=== PATIENT | male | born 1990 ===

== ENCOUNTER 2019-02-20 23:54 | Inpatient (IN) | payer SELFPAY ==
[~2019-02-20] VITALS: Ht 177.8 cm; Wt 73.5 kg
[~2019-02-20 23:54] MED LIST: AMPDEX10; CYCL10 PO; HYDACE5 PO; IBUP800 PO; NAPR500 PO; ONDA4ODT MM; RXONDA4ODT MM
[2019-02-21 00:30] LABS: BASOPHILS ABSOLUTE AUTO 0.12 K/mm3 (0.00-0.23); BASOPHILS PERCENT AUTO 1 % (0-2); EOSINOPHILS ABSOLUTE AUTO 0.24 K/mm3 (0.00-0.68); EOSINOPHILS PERCENT AUTO 2 % (0-6); Hematocrit 44.7 % (37.0-53.0); Hemoglobin 14.5 g/dL (13.5-17.5); IMMATURE GRAN ABSOLUTE AUTO 0.03 K/mm3 (0.00-0.10); IMMATURE GRAN PERCENT AUTO 0 % (0-1); LYMPHOCYTES PERCENT AUTO 44 % (21-46); MONOCYTES ABSOLUTE AUTO 0.82 K/mm3 (0.16-1.47); MONOCYTES PERCENT AUTO 7 % (4-13); Mean Corpuscular HGB 30.9 pg (26.0-34.0); Mean Corpuscular HGB Conc 32.4 g/dL (31.5-36.5); Mean Corpuscular Volume 95 fL (80-100); NEUTROPHILS ABSOLUTE AUTO 5.11 K/mm3 (1.96-9.15); NEUTROPHILS PERCENT AUTO 46 % (41-73); RDW Coefficient Variation 11.6 % (11.7-14.2); RDW Standard Deviation 40.6 fL (35.1-46.3); White Blood Cell Count 11.22 K/mm3 (4.00-11.30)
[2019-02-21 00:40] LABS: Alanine Aminotransfer (ALT/SGP 25 U/L (12-78); Albumin, Blood 4.3 g/dL (3.4-5.0); Albumin/Globulin Ratio 1.3 (0.8-1.8); Alk Phos 49 U/L (50-136); Anion Gap 13 mmol/L (6-16); Aspartate Aminotrans (AST/SGOT 20 U/L (12-37); Bilirubin, Total 0.2 mg/dL (0.1-1.0); Blood Urea Nitrogen 23 mg/dL (8-24); Bun/Creatinine Ratio 18.4 (12.0-20.0); CO2, Blood 20 mmol/L (21-32); Calcium, Blood 8.3 mg/dL (8.5-10.1); Chloride, Blood 108 mmol/L (98-108); Creatinine, Blood 1.25 mg/dL (0.60-1.20); Ethanol (Alcohol), Blood, Med 297 mg/dL; Globulin, Blood 3.4 g/dL (2.2-4.0); Glomerular Filtration Rate >60 (60-); Glucose, Blood 114 mg/dL (70-99); Potassium, Blood 3.3 mmol/L (3.5-5.5); Sodium, Blood 141 mmol/L (136-145); Total Protein, Blood 7.7 g/dL (6.4-8.2)
[2019-02-21 00:41] LABS: Mean Platelet Volume 10.7 fL (9.1-12.4); Platelet Count 241 K/mm3 (150-400)
[2019-02-21 00:51] LABS: Source, Urine Clean Catch
[2019-02-21 00:54] LABS: Bilirubin, Urine Neg (Neg); Blood, Urine Neg (Neg); Glucose Qualitative, Urine Neg (Neg); Ketones, Urine Neg (Neg); Leukocyte Esterase, Urine Neg (Neg); Nitrite, Urine Neg (Neg); Protein, Urine Neg (Neg); Urobilinogen, Urine NORM (Normal)
[2019-02-21 00:55] LABS: Appearance, Urine Clear (Clear); Color, Urine Yellow (P-Yellow)
[2019-02-21 01:05] LABS: U Amphetamine Screen Not Detected; U Barbituate Screen Not Detected; U Benzodiazapine Screen Not Detected; U Buprenorphine Screen Not Detected; U Cannabinoids Screen DETECTED; U Cocaine Screen Not Detected; U Methadone Screen Not Detected; U Methamphetamine Screen Not Detected; U Opiates Screen Not Detected; U Oxycodone Screen Not Detected; U Phencyclidine Screen Not Detected; U Propoxyphene Screen Not Detected
[2019-02-21 01:58] LABS: Thyroid Stimulating Hormone 0.461 uIU/mL (0.360-4.800)
[2019-02-21 02:44] LABS: PCO2 Arterial 45.5 mmHg (35-45); PO2 Arterial 143 mmHg (80-100); pH Blood Arterial 7.32 (7.35-7.45)
--- NOTE | 2019-02-21 04:01 | NUR ---
ADMIT NOTE: PT ARRIVED TO ICU RM 13 FROM ER AT APPRX 0220. PT INTUBATED, SEDATED ON VERSED AND PROPOFOL. VSS. PT WAS RESTLESS AND CONTINUED TO PULL AT RESTRAINTS SITTING HIMSELF UP. VERSED AND PROPOFOL gtts TITRATED TO AFFECT AND ARE CURRENTLY: VERSED 5mg/hr, PROPOFOL 30 mcg/kg/min. VENT SETTINGS CURRENTLY: A/C 16, Vt 450, PEEP OF 5.0, FiO2 30%. PT'S MOTHER JEAN CLAUDE TO ROOM AFTER PT WAS SETTLED. JEAN CLAUDE VERBALIZED GREAT CONCERNS RE: PT AND SOUND DESPERATELY TO GET HELP. JEAN CLAUDE STATED THAT SHE BELIEVES PT IS ON THE WRONG MEDICATION AND VERBALIZED HOPE THAT PT WILL BE PLACED ON THE PROPER MEDICATION FOR BIPOLAR. JEAN CLAUDE STATED THAT SHE HAS TRIED SEVERAL TIMES TO GET THE PT RE-EVALUATED FROM HIS CURRENT PSYCHOLOGIST BUT FEELS IS NOT BEING LISTENED TO. JEAN CLAUDE STATED THAT PT PLACED DEMANDS ON HIS MOM AT HOME AND WHEN THE DEMAND ISN'T MET, HE WILL GRAB HIS MOM BY THE THROAT AND YELL. JEAN CLAUDE STATED THAT SHE IS AFRAID THAT THEY (THE SYSTEM) WON'T DO ANYTHING TO HELP UNTIL AFTER THE PT HAS HURT HIMSELF, HER, OR SOMEONE ELSE. JEAN CLAUDE REASURED THAT THE PT HAS BEEN ORDERED THE RESOURCES NEEDED TO ASSIST PT IN FURTHER PSYCHIATRIC CARE. JEAN CLAUDE LEFT THE DEPT TO GET REST BEFORE WORK AND STATED WILL TRY TO BE BACK AROUND 0900.
--- NOTE | 2019-02-21 08:06 | NUR ---
DR. FOSS AT [facility] [place] FOR ASSESSMENT. RECEIVED VERBAL ORDER OR WEST CATHETER AND KCL REPLACEMENT.
[2019-02-21 08:11] LABS: BASOPHILS ABSOLUTE AUTO 0.04 K/mm3 (0.00-0.23); BASOPHILS PERCENT AUTO 0 % (0-2); EOSINOPHILS ABSOLUTE AUTO 0.04 K/mm3 (0.00-0.68); EOSINOPHILS PERCENT AUTO 0 % (0-6); Hematocrit 39.3 % (37.0-53.0); Hemoglobin 12.9 g/dL (13.5-17.5); IMMATURE GRAN ABSOLUTE AUTO 0.03 K/mm3 (0.00-0.10); IMMATURE GRAN PERCENT AUTO 0 % (0-1); LYMPHOCYTES ABSOLUTE AUTO 2.92 K/mm3 (0.84-5.20); LYMPHOCYTES PERCENT AUTO 26 % (21-46); MONOCYTES ABSOLUTE AUTO 0.84 K/mm3 (0.16-1.47); MONOCYTES PERCENT AUTO 8 % (4-13); Mean Corpuscular HGB 30.6 pg (26.0-34.0); Mean Corpuscular HGB Conc 32.8 g/dL (31.5-36.5); Mean Corpuscular Volume 93 fL (80-100); Mean Platelet Volume 9.9 fL (9.1-12.4); NEUTROPHILS ABSOLUTE AUTO 7.32 K/mm3 (1.96-9.15); NEUTROPHILS PERCENT AUTO 65 % (41-73); Platelet Count 242 K/mm3 (150-400); RDW Coefficient Variation 11.9 % (11.7-14.2); RDW Standard Deviation 40.6 fL (35.1-46.3); Red Blood Cell Count 4.22 M/mm3 (4.30-5.90); White Blood Cell Count 11.19 K/mm3 (4.00-11.30)
[2019-02-21 08:26] LABS: Anion Gap 4 mmol/L (6-16); Blood Urea Nitrogen 17 mg/dL (8-24); Bun/Creatinine Ratio 15.9 (12.0-20.0); CO2, Blood 25 mmol/L (21-32); Calcium, Blood 7.6 mg/dL (8.5-10.1); Chloride, Blood 115 mmol/L (98-108); Creatinine, Blood 1.07 mg/dL (0.60-1.20); Glomerular Filtration Rate >60 (60-); Glucose, Blood 102 mg/dL (70-99); Magnesium, Blood 2.4 mg/dL (1.6-2.4); Potassium, Blood 4.3 mmol/L (3.5-5.5); Sodium, Blood 144 mmol/L (136-145)
--- NOTE | 2019-02-21 08:33 | NUR ---
PATIENT'S MOTHER JEAN CLAUDE AT BEDSIDE FOR VISIT. OFFERED REFRESHMENT, DECLINED. ASKED THAT SHE CALL STAFF FOR ANY NEDS.
--- NOTE | 2019-02-21 09:40 | NUR ---
CONNECTED TO LI WALL SUCTION TO CHECK FOR VOLUME. NO MEASUREABLE OUTPUT NOTED, SCANT AMT PALE BROWN DRAINAGE. USED MANUAL SUCTION, SAME RESULT.
--- NOTE | 2019-02-21 12:37 | NUR ---
PATIET SEDATED, INTUBATED. TURNED HEAD FROM SIDE TO SIDE DURING ORAL CARE AND SUCTIONING, MOVED L HAND NON-PURPOSEFULLY. REMAINS IN SOFT RESTRAINTS X 4. TOLERATING VENTILATOR, NO S/S OF RESP DISTRESS; C/16/450/30%./5.0 PEEP. NO OBSERVABLE SIGNS OF PAIN.
--- NOTE | 2019-02-21 12:45 | NUR ---
UNABLE TO PERFORM SUICIDE RISK ASSESSMENT PT IS INTUBATED AND SEDATED, UNABLE TO ANSWER QUESTIONS AT THIS TIME.
--- NOTE | 2019-02-21 18:36 | NUR ---
SHIFT SUMMARY: PT REMAINS SEDATED AND INTUBATED. MOVES EXTREMITIES INTERMITTENTLY AGAINST RESTRAINTS. DOES NOT FOLLOW COMMANDS. IN SR, NO EDEMA, BP STABLE. VENT SETTINGS: C/16/450/30% FIO2/5.0 PEEP. TOLERATING VENT WELL. LUNGS CLEAR THROUGHOUT. OGT CLAMPED. WEST DRAINING ADEQUATE URINE. SOFT WRIST RESTRAINTS X 4. MOM VISITED TWICE DURING THE DAY. NO OBSERVABLE S/S OF PAIN. PROPOFOL @ 30 MCG/KG/MIN, VERSED @ 5 MG/HR, AND NS @ 100/HR. PLAN IS FOR POSSIBLE EXTUBATION TOMORROW.
--- NOTE | 2019-02-21 21:51 | NUR ---
DR. CLIFFORD NOTIFIED: PT C/ INCREASED AGITATION SINCE START OF SHIFT DESPITE INCREASED TITRATION OF PROPOFOL AND VERSED. PT ALSO C/ INCREASED LUNG SOUNDS, INCREASED ORAL SECRETIONS, AND INCREASED NEED FOR SUCTIONING, SUCTIOINING LIGHT CLIFFORD SPUTUM. NEW ORDERS: STAT C-XRAY, SPUTUM CX, GIVE FENTANYL 50-100mcg Q1HR FOR SEDATION; MAY TITRATE VERSED gtt TO 10 mg/hr. AT TIME OF CALL, STAFF X4 TRYING TO HOLD PT HE WAS RISING, PULLING ON RESTRAINTS, COUGHING AND GAGGING AGAINST VENT. JOANNA RT REMAINED AT BEDSIDE. AT THAT TIME, PROPOFOL TITRATED TO 50mcg/kg/hr, VERSED TITRATED TO 7mg/hr. PT GIVEN 50mcg FENTANYL AND HAS BEEN MORE CALM SINCE. VSS. WILL CONTINUE TO MONITOR.
--- NOTE | 2019-02-21 23:33 | NUR ---
DR. CLIFFORD NOTIFIED: RE: PT C/ BRADYCARDIA INTO THE 40'S. UPDATED RE: PROPOFOL AND VERSED gtt's CONTINUED AT RATES GIVEN AT FIRST PHONE CALL (PROPOFOL AT 50mcg, AND VERSED AT 7mg). RT AND CHARGE CALLED TO BEDSIDE. PROPFOL AND VERSED PAUSED WHILE CALL MADE TO DOCTOR. NEW ORDERS GIVEN AND REPEATED X2: HOLD gtts UNTIL HR STABLE. ADD PRECEDEX TO DRIPS AND TITRATE PROPOFOL DOWN. VERIFIED CONTINUING VERSED gtt AND VERSED TO BE CONTIUED. FENTANYL 50-100mcg Q1 HR PRN CONTINUED.
--- NOTE | 2019-02-22 01:15 | NUR ---
UPDATE: THIS RN REMAINED AT BEDSIDE SINCE PHONE CALL AND ORDERS TO DR. CLIFFORD TITRATING PROPOFOL AND VERSED gtt TO AFFECT. NOTED WAS PT'S HR IN TO THE 40'S AND LOW 42 WHEN ANY RATE OF VERSED GIVEN. AT LOW DOSE OF PROPOFOL PT AWAKENED AND VERY AGITATED PULLING AT RESTRAINTS, FOLDING SELF FORWARD, AND ACTUALLY AT ONE POINT WAS ABLE TO GRAB ET TUBE. VERSED WAS PAUSED, FENTANYL 50 mcg GIVEN. WHEN HR REMAINED OVER 60, PRECEDEX WAS STARTED AT START RATE OF 0.2 mcg/kg/hr. AT THAT TIME PROPOFOL REDUCED FROM 50 mcg. TO 35 mcg. CURRENTLY PT REMAINS SEDATED AND CALM. BED ALARM ON TO MOST SENSITIVE SETTING. PT IN FULL VIEW OF NURSES' STATION. WILL CONTINUE TO MONITOR.
--- NOTE | 2019-02-22 03:32 | NUR ---
UPDATE: AT APPRX 0300, PT BED ALARM SOUNDED, STAFF IMMEDIATELY TO BEDSIDE. PT TRYING TO SIT UP AND LEAN FORWARD REACHING FOR TUBE. EVEN IN FOUR POINT SOFT RESRAINTS, PT ABLE TO PULL HIMSELF FORWARD ENOUGH TO GET ET TUBE CLOSE ENOUGHT TO HIS HAND. PRECEDEX TITRATED TO 0.4 mcg/kg/hr, PROPOFOL TO 40 mcg/kg/hr. FENTANYL 50 mcg GIVEN A SEDATION ADJUNCT. PT CURRENTLY CALM AND QUIET, VSS.
[2019-02-22 03:42] LABS: BASOPHILS ABSOLUTE AUTO 0.05 K/mm3 (0.00-0.23); BASOPHILS PERCENT AUTO 0 % (0-2); EOSINOPHILS ABSOLUTE AUTO 0.04 K/mm3 (0.00-0.68); EOSINOPHILS PERCENT AUTO 0 % (0-6); Hematocrit 38.2 % (37.0-53.0); Hemoglobin 12.2 g/dL (13.5-17.5); IMMATURE GRAN ABSOLUTE AUTO 0.04 K/mm3 (0.00-0.10); IMMATURE GRAN PERCENT AUTO 0 % (0-1); LYMPHOCYTES ABSOLUTE AUTO 3.27 K/mm3 (0.84-5.20); LYMPHOCYTES PERCENT AUTO 22 % (21-46); MONOCYTES ABSOLUTE AUTO 1.31 K/mm3 (0.16-1.47); MONOCYTES PERCENT AUTO 9 % (4-13); Mean Corpuscular HGB 30.8 pg (26.0-34.0); Mean Corpuscular HGB Conc 31.9 g/dL (31.5-36.5); Mean Platelet Volume 10.1 fL (9.1-12.4); NEUTROPHILS ABSOLUTE AUTO 10.53 K/mm3 (1.96-9.15); NEUTROPHILS PERCENT AUTO 69 % (41-73); Platelet Count 221 K/mm3 (150-400); RDW Coefficient Variation 11.7 % (11.7-14.2); RDW Standard Deviation 41.4 fL (35.1-46.3); Red Blood Cell Count 3.96 M/mm3 (4.30-5.90); White Blood Cell Count 15.24 K/mm3 (4.00-11.30)
[2019-02-22 03:43] LABS: Mean Corpuscular Volume 97 fL (80-100)
[2019-02-22 03:57] LABS: Anion Gap 6 mmol/L (6-16); Blood Urea Nitrogen 16 mg/dL (8-24); Bun/Creatinine Ratio 13.9 (12.0-20.0); CO2, Blood 27 mmol/L (21-32); Calcium, Blood 7.9 mg/dL (8.5-10.1); Chloride, Blood 110 mmol/L (98-108); Creatinine, Blood 1.15 mg/dL (0.60-1.20); Glomerular Filtration Rate >60 (60-); Glucose, Blood 85 mg/dL (70-99); Potassium, Blood 3.7 mmol/L (3.5-5.5); Sodium, Blood 143 mmol/L (136-145)
--- NOTE | 2019-02-22 06:27 | NUR ---
SHIFT SUMMARY: SINCE OFF VERSED, PT'S HR STABLE BETWEEN 55-68 WHILE ON PRECEDEX. PT TOLERATING VENT ON PROPOFOL 40 mcg AND PRECEDEX AT 0.4 mcg AND WHEN SUDDENLY AGITATED IS RESOLVED WITH FENTANYL 50 mcg. PT CURRENTLY RESTING QUIETLY. VSS.
--- NOTE | 2019-02-22 08:10 | NUR ---
ASSUMED CARE: REPORT RECEIVED FROM GORGE Ortega RN. ASSUMED CARE OF THIS PT AT APPROX 0700. ON ASSESSMENT, THE PT IS SEDATED/INTUBATED. HE IS VERY EASILY AGITATED & DIFFICULT TO REDIRECT, CONTINUOUS REACHING FOR TUBE, COUGHING & PULLING ON RESTRAINTS. PROPOFOL TITRATION INCREASED & MEDS PER EMAR FOR SEDATION ADJUNCT. PT FEBRILE THIS AM, SEE VS. LS CLEAR T/O, VENT SETTINGS: AC 16, TV 450, PEEP 5 & FIO2 30%. MOD AMNTS OF THIN CLIFFORD SECRETIONS SUCTIONED FROM ETT. MONITOR SHOWS SR W/ HR 60-80s, INCREASED W/ AGITATION. BP STABLE. OGT CLAMPED. TEMP WEST PATENT/ DRAINING. SKIN OVERALL CDI. WILL CONTINUE TO MONITOR & UPDATE NEEDED.
--- NOTE | 2019-02-22 10:33 | NUR ---
DR FOSS / DR CLIFFORD: DR FOSS AT BEDSIDE TO EVAL PT. NO CHANGES AT THIS TIME, CONTINUE POC PER STAFF NURSE SERVICE. DR CLIFFORD AT BEDSIDE. PLANS TO ALLOW PT TO CONTINUE RESTING THIS AM R/T AGITATION, MAY ATTEMPT SBT & SEDATION VACATION THIS AFTERNOON IF PT MORE APPROPRIATE. DESIGN PRINTING MACHINE SETTER CONSULT HAS BEEN PLACED FOR ENTERAL FEED INITIATION & ABX ORDERED FOR INCREASED TEMP. WILL CONTINUE TO MONITOR & UPDATE NEEDED.
--- NOTE | 2019-02-22 11:11 | NUR ---
DR CLIFFORD UPDATE: PROVIDER NOTIFIED OF PT's INCREASED TEMP, 101.3 CURRENTLY. ONE TIME DOSE OF TYLENOL ORDERED, BLOOD CX TO BE DRAWN IF TEMP SPIKES UP AGAIN AFTER TYLENOL ADMIN.
--- NOTE | 2019-02-22 12:04 | NUR ---
TUBE FEEDS: TUBE FEED INITIATED PER DIETARY ORDERS AT 1130. MAY BE ADVANCED TO GOAL RATE OF 30 ML/HR IF TOLERATING WELL AT APPROX 1930 TONIGHT.
--- NOTE | 2019-02-22 16:00 | NUR ---
EXTUBATION: SBT INITIATED AT [address] CLIFFORD, SETTINGS PS 5/5. PT TOLERATING WELL, FOLLOWING COMMANDS & RESPONDS WELL TO VERBAL REDIRECTION TO REMAIN CALM & BREATHE SLOWLY. EXTUBATED TO RA AT 1530. PT TOLERATING WELL W/ O2 SATS > 92%. BILAT SOFT ANKLE RESTRAINTS REMOVED & BILAT SOFT WRIST RESTRAINTS REMAIN IN PLACE. PT IS NOW MORE REDIRECTABLE & RESPONSIVE TO DIRECTION, BUT REMAINS HIGH FALL RISK & ATTEMPTS TO GET OOB AT TIMES. WILL CONTINUE TO MONITOR & UPDATE NEEDED.
--- NOTE | 2019-02-22 18:20 | NUR ---
SHIFT SUMMARY: NO ACUTE CHANGES SINCE PRIOR UPDATES. PT IS MORE CLEAR NOW, RECALLING RECENT EVENTS & VERBALIZING UNDERSTANDING OF CIRCUMSTANCES R/T ADMISSION. HE CONTINUES TO STATE HE "JUST WANTS TO GO HOME," BUT IS AGREEABLE TO STAY. BED ALARM ON FOR HIGH FALL RISK. LS ARE CLEAR T/O, PT ON RA W/ O2 SATS > 92%. MONITOR SHOWS SR W/ HR 60-70s. BP STABLE. PT HAS NO GI COMPLAINTS, WEST REMOVED THIS AFTERNOON & PT STS NO NEED TO VOID SINCE THAT TIME. TOLERATING PO SIPS OF WATER WELL W/ NO COUGHING NOTED. SKIN OVERALL CDI. WILL CONTINUE TO MONITOR & REPORT OFF TO ONCOMING RN.
--- NOTE | 2019-02-22 20:33 | NUR ---
ASSUMPTION OF CARE PATIENT IS RESTING QUIET AND COMFORTABLY. DAYSHIFT NURSE SAID HE HAD BEEN AGGITATED AND WANTING TO LEAVE AMA. WAS CONVINCED TO STAY FOR THE EVENING. PT HAD TROUBLE VOIDING AFTER WEST REMOVAL EARLIER TODAY, HOWEVER HE VOIDED 700ML DURING ASSESSMENT. PRECEDEX TITRATED DOWN FROM 0.8 TO 0.6, AND THEN AGAIN TO 0.3 @ APPROX 2000 D/T DECREASED HEART RATE (HEART RATE HAD GONE DOWN TO HIGH 40S. CURRENTLY SITTING IN THE 50S AND 60S, PT IS CALM, QUIET, TOLERATING WELL. TKO @ 10ML/HR. WILL CONTINUE TO MONITOR HAL MOCK
[2019-02-23 03:26] LABS: Base Excess Venous 0.2 mmol/L; Bicarbonate Venous 24.7 mmol/L (24.0-30.0); PCO2 Venous 35.6 mmHg (38-42); PO2 Venous 57.2 mmHg (38-42); pH Blood Venous 7.44 (7.34-7.37)
[2019-02-23 03:26] LABS: BASOPHILS ABSOLUTE AUTO 0.07 K/mm3 (0.00-0.23); BASOPHILS PERCENT AUTO 0 % (0-2); EOSINOPHILS ABSOLUTE AUTO 0.05 K/mm3 (0.00-0.68); EOSINOPHILS PERCENT AUTO 0 % (0-6); Hematocrit 38.4 % (37.0-53.0); Hemoglobin 13.2 g/dL (13.5-17.5); IMMATURE GRAN ABSOLUTE AUTO 0.11 K/mm3 (0.00-0.10); IMMATURE GRAN PERCENT AUTO 1 % (0-1); LYMPHOCYTES ABSOLUTE AUTO 1.22 K/mm3 (0.84-5.20); LYMPHOCYTES PERCENT AUTO 6 % (21-46); MONOCYTES ABSOLUTE AUTO 0.95 K/mm3 (0.16-1.47); MONOCYTES PERCENT AUTO 4 % (4-13); Mean Corpuscular HGB 30.8 pg (26.0-34.0); Mean Corpuscular HGB Conc 34.4 g/dL (31.5-36.5); Mean Platelet Volume 10.3 fL (9.1-12.4); NEUTROPHILS ABSOLUTE AUTO 19.19 K/mm3 (1.96-9.15); NEUTROPHILS PERCENT AUTO 89 % (41-73); Platelet Count 223 K/mm3 (150-400); RDW Coefficient Variation 11.4 % (11.7-14.2); RDW Standard Deviation 37.2 fL (35.1-46.3); Red Blood Cell Count 4.28 M/mm3 (4.30-5.90); White Blood Cell Count 21.59 K/mm3 (4.00-11.30)
[2019-02-23 03:27] LABS: Mean Corpuscular Volume 90 fL (80-100)
[2019-02-23 03:41] LABS: Magnesium, Blood 1.8 mg/dL (1.6-2.4)
[2019-02-23 03:42] LABS: Anion Gap 8 mmol/L (6-16); Blood Urea Nitrogen 11 mg/dL (8-24); Bun/Creatinine Ratio 9.8 (12.0-20.0); CO2, Blood 24 mmol/L (21-32); Calcium, Blood 8.1 mg/dL (8.5-10.1); Chloride, Blood 108 mmol/L (98-108); Creatinine, Blood 1.12 mg/dL (0.60-1.20); Glomerular Filtration Rate >60 (60-); Glucose, Blood 97 mg/dL (70-99); Phosphorus, Blood 2.9 mg/dL (2.5-4.9); Potassium, Blood 3.4 mmol/L (3.5-5.5); Sodium, Blood 140 mmol/L (136-145)
--- NOTE | 2019-02-23 06:04 | NUR ---
PT HAS BEEN RESTING QUIETLY AND COMFORTABLY MOST OF SHIFT. PRECEDEX WAS AT 0.8 START OF SHIFT. PT HR WENT INTO 40s. PRECEDEX TITRATED DOWN TO 0.6 AT APPROX. 1900, AND TO 0.3 AT APPROX 2000. PATIENT WAS TOLERATING LOWERED DOSE OF PRECEDEX, PRECEDEX LOWERED TO 0.2 @ 0000. AT 0400 PRECEDEX PLACED ON STANDBY. PATIENT TOLERATING WELL. HAS NS TKO. HAD COMPLAINTS OF PAIN LEVEL OF 6-7 IN HIS BACK AND RIBS. POTASSIUM WAS AT 3.4. DR OSBORNE WAS CALLED AND ORDERS FOR PO KCL AND PO TYLENOL ENTERED. PT PAIN LEVEL WAS REDUCED WHEN ASKED AT REASSESSMENT. PT WBC COUNT IS UP TO 21.59, FROM 15 THE DAY PRIOR. LOW-GRADE FEVER 99.5 DEGREES F. VITALS ARE STABLE. WILL CONTINUE TO MONITOR. HAL WILBURN SN
--- NOTE | 2019-02-23 07:19 | NUR ---
ASSUMED CARE: RECEIVED REPORT FROM NOC RN. PT APPEARS AWAKE BUT DROUSY WHEN WALKING IN THE ROOM. PT APPEARS PLEASENT WITH SHIFT CHANGE SAYING THANK YOU TO THE OFF GOING RN. NO ACUTE DISTRESS NOTED AT THIS TIME. WILL REVIEW CHART AND CONTINUE TO MONITOR AND ASSESS FURTHER.
--- NOTE | 2019-02-23 08:05 | NUR ---
X-RAY: RECEIVED ORDER FOR A 2 VIEW CHEST X-RAY. TALKED WITH DR ISTRATE TO SEE IF THAT COULD BE CHANGED TO A 1 VIEW SO IT CAN BE DONE IN THE ROOM. RECEIVED THE OK TO DO 1 VIEW IF IT WILL BE AN ISSUE. WILL ASSESS PT COMPLIANCE AND MENTATION TO SEE IF PT WILL TOLERATE. WHILE ON THE PHONE RECEIVED ORDER FOR UA.
--- NOTE | 2019-02-23 09:35 | NUR ---
DR VISIT: ISTRATE IN TO SEE THE PT. MORNING 1 VIEW CHEST X-RAY NOTED PNA IN R LOWER LOBE. CANCELLED THE 2 VIEW CHEST X-RAY ORDER, UA, TELEMETRY, AND DR KULKARNI ORDER. RECEIVED ORDER TO TRANSFER TO MEDICAL FLOOR. DR KULKARNI NOTIFIED OF THE DC ORDER AND IS IN AGREANCE. PT CONTINUES TO BE COOPERATIVE AND IS IN AGREANCE TO STAY ANOTHER NIGHT. WILL CONTINUE TO MONITOR AND ASSESS
--- NOTE | 2019-02-23 14:49 | NUR ---
TRANSFER: PT TRANSFERED TO [facility] AT THIS TIME. PT WALKED OUT THE DOOR TO THE MEDICAL ROOM WITH PCT. NO ACUTE DISTRESS NOTED.
--- NOTE | 2019-02-23 14:57 | NUR ---
TRANSFER PT TRANSFERRED FROM ICU, PT IS ALERT AND ORIENTED, INDEPENDENT IN THE ROOM, ORIENTED PT TO THE ROOM AND CALL SYSTEM, WILL CONT TO MONITOR
[2019-02-23] MEDS ORDERED: ACET325 PO (16:15)
[2019-02-23] MEDS ORDERED: CEFP200 PO (16:15)
--- NOTE | 2019-02-23 16:33 | NUR ---
SUMMARY/DISCHARGE PT DISCHARGED TO HOME, PT VERBALIZED UNDERSTANDING OF DISCHARGE INSTRUCTIONS REGARDING FOLLOW UP AND MEDICATIONS, PT DECLINED A WHEELCHAIR, ABLE TO AMBULATE SAFELY TO THE ELEVATOR WITH HIS MOM
== END 2019-02-23 16:25 | disposition home or self-care (01) | DRG 896 ==
LOC: ER 23:54 → ICUW 23:55 → MEDS 02-23 14:49 → ICUW 02-23 14:49 → MEDS 02-23 16:25
PROVIDERS: Emergency Medicine; Family Medicine; Internal Medicine Pulmonary Disease; ADMIT Hospitalist
PROC: 5A1935Z Respiratory Ventilation, Less than 24 Consecutive Hours (ICD-10-PCS; principal; 2019-02-20)
DX: F10.121 Alcohol abuse with intoxication delirium (principal); G92 Toxic encephalopathy; J96.01 Acute respiratory failure with hypoxia; N17.9 Acute kidney failure, unspecified; F90.9 Attention-deficit hyperactivity disorder, unspecified type; E87.6 Hypokalemia; F32.9 Major depressive disorder, single episode, unspecified
CPT/HCPCS: 31500; 31720; 36415; 36600; 51702; 70450; 71045; 80048; 80053; 81003; 82803; 83735; 84100; 84443; 85025; 87040; 87070; 87077; 87147; 87186; 87205; 90686; 94002; 94003; 96365; 96375; 96376; 99291-25; 99292; A9270; C9113; G0480; J0330; J0696; J1650; J2250; J2405; J2704; J3010; J3411; J3475; J3480; J3486; J7030; J7042

== ENCOUNTER 2019-07-09 13:18 | Emergency (ER) | payer SELFPAY ==
[~2019-07-09] VITALS: Ht 172.7 cm; Wt 74.8 kg
[~2019-07-09 13:18] MED LIST changes: +ACET325 PO; +CEFP200 PO
== END 2019-07-09 14:11 | disposition home or self-care (01) ==
LOC: ER 13:18
DX: F41.9 Anxiety disorder, unspecified (principal)
CPT/HCPCS: 71045; 93005; 93010; 99284-25

== ENCOUNTER 2023-10-12 19:41 | Emergency (ER) | payer OTHER ==
[~2023-10-12] VITALS: Ht 170.2 cm; Wt 77.1 kg
[2023-10-12] MEDS ORDERED: Fluorescein Sod 1MG Opth Strips LEFTEYE ONE (22:20)
[2023-10-12] MEDS ORDERED: Tetracaine HCl/Pf 0.5% Opth Soln 4 ml LEFTEYE ONE (22:20)
[2023-10-12] MEDS ORDERED: Gentamicin Sulfate 0.3% Opth Soln LEFTEYE ONE (23:15)
[2023-10-13 00:05] VITALS: BP 136/70
== END 2023-10-13 00:06 | disposition home or self-care (01) ==
LOC: ER 19:41
DX: H18.822 Corneal disorder due to contact lens, left eye (principal); H16.9 Unspecified keratitis
CPT/HCPCS: 65222; 99282-25; A9270